=== PATIENT | male | born 1990 ===

== ENCOUNTER → 2022-08-26 | Outpatient (REF) | payer OTHER ==
[2022-08-26 12:06] LABS: SEMEN APPEARANCE OPAQUE (OPAQUE); SEMEN VISCOSITY LIQUID (LIQUID); SEMEN VOLUME 8.7 ml (2.0-5.0); WBC CONCENTRATION <=1 M/ml (<=1 M/ml)
== END ==
LOC: M LAB REF 11:21
PROVIDERS: ATTEND Surgery
DX: Z30.2 Encounter for sterilization (principal)